=== PATIENT | male | born 2000 | race Hispanic/Latino ===

== ENCOUNTER 2020-04-02 09:32 | Emergency (ER) | payer OTHER ==
[~2020-04-02] VITALS: Ht 165.1 cm; Wt 67.3 kg
[2020-04-02] MEDS ORDERED: IBUP-359 PO (10:43)
--- NOTE | 2020-04-02 10:44 | REP ---
RIGHT KNEE, FIVE VIEWS: There is no evidence of an acute fracture, dislocation, or intrinsic bone disease. IMPRESSION: No fracture or dislocation. Electronically Signed by Leon Cardenas MD 04/05/2020 09:45 P
[2020-04-02 10:52] VITALS: BP 120/86
== END 2020-04-02 10:58 | disposition home or self-care (01) ==
LOC: M ED 09:32
DX: M76.51 Patellar tendinitis, right knee (principal)